=== PATIENT | female | born 1975 | race African-American/Black ===

== ENCOUNTER 2021-05-04 18:31 | Emergency (ER) | payer MEDICARE, SELFPAY ==
--- NOTE | ~2021-05-04 | XR_ITS ---
EXAMINATION: XR shoulder LT min 2V EXAM DATE: 05/04/2021 19:44 INDICATION: Left shoulder pain after fall Today, Swelling To Anterior. TECHNIQUE: The following left shoulder projections obtained: frontal projection with internal rotatio n, frontal projection with external rotation, Grashey, and scapular Y view (4+ views). There is no p rior study for comparison. FINDINGS: No evidence of left shoulder rotator cuff calcific tendinosis. There is mild glenohumera l joint, mild acromioclavicular joint primary osteoarthritis. There are no acute fractures or disloca tions identified. There is no subcutaneous gas. The soft tissue is unremarkable. There are no rad iopaque foreign bodies. IMPRESSION: 1. Left shoulder exam without acute osseous findings. 2. Mild osteoarthritis. Reviewed, dictated and finalized at location .
--- NOTE | ~2021-05-04 | XR_ITS ---
EXAMINATION: XR elbow LT min 3V EXAM DATE: 05/04/2021 19:54 INDICATION: Pain after fall , initial encounter. TECHNIQUE: Left elbow frontal, lateral with flexion, and oblique projections obtained and reviewed. C orrelation is made to Left shoulder x-ray same date FINDINGS: Left elbow anterior humeral line intact. There are no acute fractures or dislocations analy ntified. There is no subcutaneous gas. The soft tissue is unremarkable. There are no radiopaque f oreign bodies. IMPRESSION: 1. XR elbow LT min 3V exam without acute osseous findings. Reviewed, dictated and finalized at location G.
[2021-05-04 19:17] VITALS: BP 128/84; PULSE 76; RESP 16; TEMP 37; O2SAT 100
--- NOTE | 2021-05-04 20:57 | ED.UPPEXIN ---
HPI - Extremity Injury (Upper) General Chief Complaint: Extremity Injury, Upper Stated Complaint: Fall, Left Shoulder Pain Time Seen by Provider: 05/04/21 20:26 Source: patient Mode of arrival: ambulatory Limitations: no limitations History of Present Illness HPI narrative: Patient is a 45-year-old female complaining of left shoulder and left elbow pain, 8 out of 10, dull, worse with palpation movement after she tripped over her dog and fell on her left side. Patient denies any head, neck, chest, back or any other extremity pain/injury. Patient was able to stand up and ambulate after the fall. Related Data Allergies Allergy/AdvReac Type Severity Reaction Status Date / Time atorvastatin AdvReac Weakness Verified 05/04/21 19:24 gabapentin AdvReac Chest Pain Verified 05/04/21 19:24 Review of Systems Review of Systems: Per HPI PMFSH Comments Past medical history: Hyperlipidemia Family history: Hypertension Social history: Non-smoker no EtOH or drug use Exam Const: General: cooperative, healthy appearing, comfortable, no acute distress, well developed, alert and awake; No confusion Orientation/consciousness: oriented to person, oriented to place, oriented to time, patient oriented x3 and No confusion Limitations: no limitations HENMT: Head: normal to inspection, normocephalic and atraumatic Ears: hearing grossly normal bilaterally, TM normal on the right and TM normal on the left General nose exam: Normal external nose present, Normal nares present and No nasal discharge present Face and sinus: normal facial exam Mouth: Yes Normal oral and palatal mucosa present, Yes lip normal, Yes tongue normal and Yes oropharynx normal Throat: posterior oropharynx normal, tonsils normal and uvula midline Eyes: General: appearance normal, both eyes and all related structures Pupils: Equal, round and reactive pupils present EOM: EOMs intact bilaterally Neck: Neck: normal visual inspection, full ROM, no lymphadenopathy and no meningeal signs Chest: Chest palpation & inspection: normal inspection of the chest Resp: Effort & Inspection: normal respiratory effort, able to speak in complete sentences, no respiratory distress and not tachypneic Auscultation: clear to auscultation bilaterally, no crackles, no rales, no rhonchi and no wheezes Cardio: Rate: regular rate Rhythm: regular rhythm GI: Inspection: normal to inspection GI Palp: No abdominal tenderness, Yes Soft to palpation, No Tenderness to palpation present (GI), No Guarding due to palpation present (GI), No Rigid due to palpation and No Rebound tenderness present Auscultation: normal bowel sounds Skin: General skin exam: normal color, no rashes or lesions noted, elasticity normal and turgor normal Neuro: General: oriented to person, oriented to place, oriented to time, patient oriented x3, tone normal, moves all extremities, Normal light touch and pain sensation, no focal motor deficits and No confusion Cranial nerves: Yes Equal, round and reactive pupils present Speech: No Abnormal speech present Sensory Exam: No Sensory deficit (Neuro) Extrem: General: normal to inspection, full ROM and capillary refill normal Other: Negative for deformity or swelling. Pain on palpation of the left anterior shoulder, decreased range of motion due to pain. Pain on palpation of the left elbow, decreased range of motion due to pain. Neurovascular is intact. Psych: Appearance: grossly normal and well kempt Mental Status: mental status grossly normal Speech and movement: Normal speech and movement present Affect: normal affect Attitude: cooperative Thought process: Normal thought process present Thought content: Yes Normal thought content present Insight: Good insight present (Psych) Judgement: Good judgement present (Psych) Course Vital Signs Vital signs: Vital Signs Temperature 37.0 C 05/04/21 19:17 Pulse Rate 76 05/04/21 19:17 Respiratory Rate 16 05/04/21 19:17 Blood Pre
[2021-05-04] MEDS: CYCLOBENZAPRINE HCL 10 MG TABLET PO (21:24)
[2021-05-04] MEDS: HYDROcodone/acetaminophen (*CRX) 5-325 MG TABLET 1 TAB PO (21:24)
[2021-05-04] MEDS: KETOROLAC 30 MG/ML VIAL (*BKC) IM (21:25)
[2021-05-04 21:32] VITALS: BP 122/62; PULSE 68; RESP 18; O2SAT 100
== END 2021-05-04 21:33 | disposition home or self-care (01) ==
PROVIDERS: Emergency Provider Emergency Medicine
DX: S46.912A Strain of unspecified muscle, fascia and tendon at shoulder and upper arm level, left arm, initial encounter (principal); W01.0XXA Fall on same level from slipping, tripping and stumbling without subsequent striking against object, initial encounter
CPT/HCPCS: 73030; 73080; 96372; 99284; A4565; A9270; J1885